=== PATIENT | female | born 1950 | race Caucasian/White ===

== ENCOUNTER 2024-01-02 12:26 | Day surgery (SDC) | payer MEDICARE ==
[2024-01-02] MEDS ORDERED: Sodium Chloride 0.9(Preservative Free) 10 ML IJ ONE (12:27)
[2024-01-02] MEDS ORDERED: LIDOCAINE HCL 1% 50 MG/5 ML VL PF IJ ONE (12:27)
[2024-01-02] MEDS ORDERED: Depo-Medrol 40 MG/ML IM ONE (12:27)
[2024-01-02] MEDS ORDERED: DIPRIVAN 200 MG/20 ML IV ONE (14:18)
[2024-01-02] MEDS ORDERED: Lactated Ringers 1,000 ML IV ONE (15:23)
--- NOTE | 2024-01-02 16:31 | XRAY ---
Indication: Thoracic NGOC. Intraoperative fluoroscopy provided for 54 seconds. 4 digital spot image submitted for interpretation demonstrates posterior needle tip projecting posterior to lower thoracic level, possibly T9-T10 interspace. Small amount of contrast injected for needle tip placement. Correlate with intraoperative findings/report.
--- NOTE | 2024-01-02 16:43 | XRAY ---
54 seconds of fluoroscopy was used in surgery for a thoracic NGOC.
== END 2024-01-02 14:52 | disposition home or self-care (01) ==
LOC: SDC-PAIN 12:26
PROVIDERS: ATTEND Psychiatry & Neurology Pain Medicine
DX: M54.14 Radiculopathy, thoracic region (principal)
CPT/HCPCS: 62321; 72072; 77003; J1010; J2001; J2704; Q9966; J1030